=== PATIENT | female | born 1960 | race Caucasian/White ===

== ENCOUNTER 2016-06-26 07:49 | Emergency (ER) | payer MEDICARE, OTHER ==
[2016-06-26 08:03] VITALS: BP 155/91
[2016-06-26] MEDS ORDERED: ALBUTEROL SULFATE/IPRATROPIUM 3 ML NEBU IH ONE ×4 (08:04→09:06)
--- OUTSIDE RECORDS SUMMARY | 2016-06-26 08:23 | XMS REPORT | Continuity of Care Document ---
:1960 Author Organization [place] [place] [address] Care Team Providers Name Role Phone Jared Foss Primary Care Provider [phone] Source Comments This disclosure is being made pursuant to the [employer] program and maynot contain all information available regarding this patient.[facility] Active Allergies and Adverse Reactions Not on File Current Medications Be aware that medications may not be up to date as of this document. Alwaysverify current medications with the patient. Not on file Active Problems Not on file Most Recent Encounters Date Type Specialty Providers Description 06/03/2016 Data Import Social History Tobacco Use Types Packs/Day Years Used Date Never Assessed Plan of Care Health Maintenance Due Date Last Done Comments Tetanus/Pertussis (1 - Tdap) 08/06/1978 Pap Smear 08/06/1980 Colonoscopy 08/06/2009 Mammogram 08/06/2009 Well Adult Visit 08/06/2009 Influenza Immunization (#1) 2015 Results from Last 3 Months Not on file
--- OUTSIDE RECORDS SUMMARY | 2016-06-26 08:24 | XMS REPORT | Continuity of Care Document ---
:1960 Author Organization [facility] ([facility]) Address [address] [place] [address] Phone [phone] Care Team Providers Name Role Phone [phone], Need To Check Primary Care Provider Unavailable Source Comments This disclosure is being made pursuant to the Care Everywhere program, applicable federal and state laws, and may not contain all informaitonavailable regarding this patient.[facility] ([facility]) Active Allergies and Adverse Reactions Allergen Noted Date Severity Reactions Comments Gabapentin 08/28/2010 Somnolence After 2 doses slept for 24 hrs. Current Medications Prescription Sig. Disp. Refills Start Date End Date Status traMADol 50 mg tablet Take 1 Tab by 120 Tab 1 02/25/2011 Active mouth 4 times daily as needed. Do not take concomitantly with narcotics prescibed by other providers. Indications: Pain carisoprodol 350 mg Take 350 mg by Active tablet mouth 4 times daily. Indications: MUSCLE SPASM asenapine (SAPHRIS, place 1 Tab under 30 Tab 0 08/11/2012 Active [place],) 5 mg SL the tongue 2 times tablet daily. Indications: DEPRESSION TREATMENT ADJUNCT clonazePAM 0.5 mg Take 1 Tab by 30 Tab 0 08/11/2012 Active tablet mouth 2 times daily as needed. Indications: PANIC DISORDER dextroamphetamine 10 mg 1 tab TIDTake at 8 45 Tab 0 08/11/2012 Active tablet am, noon, 3 pm Indications: ATTENTION-DEFICIT HYPERACTIVITY DISORDER dextroamphetamine 15 mg Take 1 Cap by 15 Cap 0 08/11/2012 Active SR capsule mouth daily. Indications: ATTENTION-DEFICIT HYPERACTIVITY DISORDER HYDROcodone-acetaminoph Take 1 Tab by 10 Tab 0 11/17/2012 Active en 5-325 mg per tablet mouth at bedtime. Indications: PAIN oxyCODONE-acetaminophen Take 2 tablets by 60 tablet 0 01/17/2015 Active 5-325 mg per tablet mouth every 4 hours as needed for up to 10 days methocarbamol 750 mg Take 1 tablet (750 30 tablet 0 01/17/2015 Active tablet mg total) by mouth every 6 hours as needed for muscle spasms for up to 10 days Active Problems Problem Noted Date ADHD (attention deficit hyperactivity disorder) 05/16/2012 Bipolar disorder 05/16/2012 Anxiety 05/16/2012 Insomnia, unspecified 05/16/2012 Chronic low back pain 08/18/2010 Other physical therapy 08/18/2010 Pain in joint, lower leg 05/23/2006 Backache, unspecified 05/23/2006 Other screening mammogram 12/22/2005 Chronic hepatitis C without mention of hepatic coma 11/10/2005 Other and unspecified hyperlipidemia 08/20/2005 Other specified general medical examination 06/29/2005 Esophageal reflux 06/04/2005 Abnormal weight gain 11/03/2004 Abdominal pain, unspecified site 11/03/2004 Most Recent Encounters Date Type Specialty Providers Description 06/10/2016 Office Visit Ophthalmology - Babatunde Rios MD Subj: Appointment Specialty Canceled 05/28/2016 Office Visit Ophthalmology - Magdy Nixon MD Subj: Appointment Specialty Scheduled 05/27/2016 Telephone Ophthalmology - Domonique Castañeda, Chief Comp: Patient Specialty RN Concern Immunizations Name Dates Previously Given Next Due Influenza, PF 01/07/2011 Influenza, unspecified 12/22/2005 Social History Tobacco Use Types Packs/Day Years Used Date Former Smoker Cigarettes Smokeless Tobacco: Never Used Tobacco Cessation:Counseling Given: Yes Comments: Alcohol Use Drinks/Week oz/Week Comments No Last Filed Vital Signs Vital Sign Reading Time Taken Blood Pressure 120/74 11/17/2012 2:06 PM CDT Pulse 92 11/17/2012 2:06 PM CDT Temperature 36.7 C (98 F) 11/17/2012 2:06 PM CDT Respiratory Rate 20 11/17/2012 2:06 PM CDT Height 1.6 m (5' 3") 11/03/2010 11:57 AM CDT Weight 60.51 kg (133 lb 6.4 oz) 11/17/2012 2:06 PM CDT Body Mass Index 23.64 11/17/2012 2:06 PM CDT Oxygen Saturation 98% 03/17/2011 12:53 PM [employer] Plan of Care Health Maintenance Due Date Last Done Comments Hepatitis B Vaccine (1 of 3 - 1960 Primary Series) Tdap Vaccine 08/06/1970 MMR Vaccine 08/06/1977 Td Vaccine 08/06/1977 Pneumococcal Vaccine (1 of 1 08/06/1978 - PPSV23) Cervical Cancer Screening 08/06/1989 Mammogram 1999 Sigmoidoscopy Colon Cancer 08/06/2009 Screening FOBT Colon Cancer Screening 10/23/2011 10/22/2010 Lipid Disorder Screening 06/26/2015 06/25/2010, Additional history exists 10/18/2006, 12/22/2005 Colonoscopy 10/19/2015 10/18/2005 HCV Screening Completed 07/08/2005 Influenza Vaccine: Seasonal Completed 01/07/2011, 12/22/2005 Results from Last 3 Months Not on file
[2016-06-26] MEDS ORDERED: ACETAMINOPHEN 500 MG TABLET PO ONE (09:04)
[2016-06-26] MEDS ORDERED: LEVOFLOXACIN/D5W 750 MG/150 ML BAG IV ONE (09:05)
--- NOTE | 2016-06-26 09:08 | ERNOTE ---
Date of Service: 06/26/16 Time Seen by Provider: 06/26/16 07:59 Stated Complaint: URI Presenting Symptoms:: cough, other - SOB Source: patient Exam Limitations: no limitations Immunizations: IMMUNIZATION HX Immunizations Up to Date Yes History of Influenza Vaccine Yes Hx Pneumococcal Vaccination No Allergies/Adverse Reactions: Allergies No Known Allergies Allergy (Verified 01/16/16 11:50) Home Medications: HOME MEDICATIONS Zolpidem Tartrate [Ambien] 5 mg PO HS PRN 01/16/16 [Last Taken Unknown] ALPRAZolam [Xanax] 0.5 mg PO BID PRN 03/06/16 [Last Taken Unknown] Dextroamphetamine/Amphetamine [Adderall 20 mg Tablet] 20 mg PO BID 03/06/16 [ Last Taken Unknown] Albuterol Sulfate [Albuterol Sulfate 0.63 MG/3ML] 06/26/16 [Last Taken Unknown] Albuterol Sulfate [Albuterol Sulfate 2.5 MG/3 ML] 2.5 mg IH Q4H #60 vial.neb [Last Taken Unknown] Chantix 06/26/16 [Last Taken Unknown] Levofloxacin/D5w [Levaquin] 750 mg IV DAILY #7 piggyback 06/26/16 [Last Taken Unknown] predniSONE [Deltasone] 20 mg PO DAILY #5 tablet 06/26/16 [Last Taken Unknown] - History of Present Ilness Narrative: Patient comes due to SOB, coughing, and production of sputum. Timing: constant Severity: moderate Frequency/Possible Cause: Reports: frequent episodes Modifying Factors - Improves: Reports: nothing Modifying Factors - Worsens: Reports: coughing Associated Symptoms: Reports: cough, shortness of breath Prior Treatment: Denies: recently seen Review of Systems - Review of Systems Constitutional: Present: chills. Absent: fever EYE: Present: no symptoms reported ENT: Present: no symptoms reported Respiratory: Present: shortness of breath, cough, wheezing Cardiology: Present: no symptoms reported Gastrointestinal/Abdominal: Present: no symptoms reported Genitourinary: Present: no symptoms reported Musculoskeletal: Present: no symptoms reported Skin: Present: no symptoms reported Neurological: Present: no symptoms reported Endocrine: Present: no symptoms reported Hematologic/Lymphatic: Present: no symptoms reported Psych: Present: no symptoms reported All Other Systems: All systems neg except as marked - Patient's Past Medical History Patient History - Medical: ADHD, Anxiety, Chronic Pain, Depression, GERD, UTI'S Patient History - Cardiac/Respiratory: Bronchitis Patient History - Cancer: No Hx of Cancer Patient History - Surgical Procedures: Appendectomy, Back Surgery, Colonoscopy, D & C, EGD, Hysterectomy Patient History - Other: None - Family History Mother Family History - Medical: Renal Failure Family History - Cardiac/Respiratory: Hypertension - Social History Living Situations: home Abuse History: No History of abuse Psych History: Hx of Depression Smoking Status: Current some day smoker Smoking Stop Date: 03/22/16 Alcohol Use: none Drug Use: none - Immunizations Immunizations Up to Date: Yes Hx Pneumococcal Vaccination: No History of Influenza Vaccine: Yes Physical Exam - Physical Exam General Appearance: Present: wd/wn, alert, no apparent distress Eye Exam: Normal inspection: bilateral Ears, Nose, Throat: Present: normal ENT inspection Neck: Present: normal inspection Respiratory: Present: expiration (prolonged), rhonchi - L lung area, wheezing - Bilatere more in the L lung area Cardiovascular/Chest: Present: regular rate, rhythm, normal peripheral pulses. Absent: JVD Gastrointestinal/Abdominal: Present: normal bowel sounds, nontender, nondistended, soft, no organomegaly Rectal Exam: Present: nontender, normal rectal tone Back Exam: Present: normal inspection, normal range of motion, no CVA tenderness , no vertebral tenderness Extremity Exam: Present: normal inspection, non-tender, normal range of motion, no edema Neurological Exam: Present: alert, oriented, normal mood/affect, no motor/ sensory deficits Skin Exam: Present: normal color, warm/dry Lymphatic Exam: Present: no adenopathy ED Progress - Date and Time Seen: Date and Time: 06/26/16 09:14 Patient has refused all labs and further treatments recommended to her at ER. Patient wants to go home due to the need to assume care of a minor. Patient has been explained risks and benefits. - Vital Signs Patient's Vital Signs:: I have reviewed the patient's vital signs. Vital Signs: Vital Signs 06/26/16 06/26/16 06/26/16 07:59 08:11 08:12 Temperature 37 C Pulse Rate 108 H 108 H 108 H Respiratory 12 Rate Blood Pressure 155/91 O2 Sat by Pulse 93 Oximetry - X-Ray X-Ray #1 X-Ray: chest Interpretation: Interp. by me X-ray Comments: Lingular changes were noticed. - Progress/Reassessment Chief Complaint: Cough Progress:: Improved Plan - Plan Plan: Patient completed AMA and will follow up with her PCP. Departure - Departure Clinical Impression: Bronchitis COPD (chronic obstructive pulmonary disease) Qualifiers: COPD type: unspecified COPD Qualified Code(s): J44.9 - Chronic obstructive pulmonary disease, unspecified Disposition: Home self-care Condition: Stable Instructions: Chronic Obstructive Pulmonary Disease Exacerbation, [id number] , Community-Acquired Pneumonia, Adult, [id number] Referrals: Mike Lopez MD [Primary Care Provider] - Prescriptions: Albuterol Sulfate [Albuterol Sulfate 2.5 MG/3 ML] 2.5 mg IH Q4H #60 vial.neb Levofloxacin/D5w [Levaquin] 750 mg IV DAILY #7 piggyback predniSONE [Deltasone] 20 mg PO DAILY #5 tablet
[2016-06-26] MEDS ORDERED: LEVOFLOXACIN 500 MG TABLET PO ONE (09:20)
== END 2016-06-26 09:40 | disposition home or self-care (01) ==
LOC: ER 07:49
DX: J44.9 Chronic obstructive pulmonary disease, unspecified (principal); J40 Bronchitis, not specified as acute or chronic; F17.210 Nicotine dependence, cigarettes, uncomplicated; Z53.29 Procedure and treatment not carried out because of patient's decision for other reasons

== ENCOUNTER 2017-02-04 12:23 | Emergency (ER) | payer MEDICARE, MEDICAID ==
[2017-02-04 12:30] VITALS: BP 135/94
[2017-02-04] MEDS ORDERED: ALBUTEROL SULFATE 2.5 MG/0.5 ML VIAL.NEB IH ONE ×2 (12:39→13:01)
[2017-02-04] MEDS ORDERED: METHYLPREDNISOLONE SOD SUCC/PF 40 MG/ML VIAL IM ONE (12:40)
[2017-02-04] MEDS ORDERED: METHYLPREDNISOLONE SOD SUCC/PF 125 MG/2 ML VIAL ONE (13:01)
--- NOTE | 2017-02-04 13:01 | ERNOTE ---
Date of Service: 02/04/17 Time Seen by Provider: 02/04/17 12:26 Stated Complaint: BRONCHITIS Presenting Symptoms:: cough Source: patient Exam Limitations: no limitations Immunizations: IMMUNIZATION HX Immunizations Up to Date Yes History of Influenza Vaccine Yes Hx Pneumococcal Vaccination No Allergies/Adverse Reactions: Allergies No Known Allergies Allergy (Verified 02/04/17 12:31) Home Medications: HOME MEDICATIONS Zolpidem Tartrate [Ambien] 5 mg PO HS PRN 01/16/16 [Last Taken Unknown] ALPRAZolam [Xanax] 0.5 mg PO BID PRN 03/06/16 [Last Taken Unknown] Dextroamphetamine/Amphetamine [Adderall 20 mg Tablet] 20 mg PO BID 03/06/16 [ Last Taken Unknown] Albuterol Sulfate [Albuterol Sulfate 2.5 MG/3 ML] 2.5 mg IH Q4H #60 vial.neb [Last Taken Unknown] Albuterol Sulfate [Ventolin Hfa] 2 puff IH Q4H PRN #1 inhaler 02/04/17 [Last Taken Unknown] Doxycycline Monohydrate 100 mg PO BID #20 tablet 02/04/17 [Last Taken Unknown] predniSONE [Prednisone] 3 tab PO DAILY #9 tab 02/04/17 [Last Taken Unknown] - History of Present Ilness Narrative: Pt. comes in with c/o cough and SOB for a week. Pt. states that she has been using her combivent inhaler approximately once an hour for the past three days and it improves her symptoms but they improve. Pt. denies any fevers, NVD, rhinorrhea, sore throat, ear pain, but does state that she has yellow sputum production. Pt. denies any other prehospital treatment, alleviating factors, or aggravating factors. Review of Systems - Review of Systems Constitutional: Present: no symptoms reported. Absent: recent illness, fever, chills, weakness, fatigue, malaise EYE: Present: no symptoms reported. Absent: eye pain, eye discharge, double vision ENT: Present: no symptoms reported. Absent: nose pain, nose congestion, nasal drainage, sore throat Respiratory: Present: no symptoms reported. Absent: shortness of breath, cough , wheezing Cardiology: Present: no symptoms reported. Absent: chest pain, palpitations, edema Gastrointestinal/Abdominal: Present: no symptoms reported. Absent: nausea, vomiting, diarrhea, abdominal pain Genitourinary: Present: no symptoms reported Musculoskeletal: Present: no symptoms reported. Absent: back pain, joint pain Skin: Present: no symptoms reported. Absent: rash, change in color Neurological: Present: no symptoms reported. Absent: headache, dizziness/light- headedness, numbness, tingling Endocrine: Present: no symptoms reported Hematologic/Lymphatic: Present: no symptoms reported. Absent: easy bruising, easy bleeding All Other Systems: All systems neg except as marked - Patient's Past Medical History Patient History - Medical: ADHD, Anxiety, Chronic Pain, Depression, GERD, UTI'S Patient History - Cardiac/Respiratory: Bronchitis Patient History - Cancer: No Hx of Cancer Patient History - Surgical Procedures: Appendectomy, Back Surgery, Colonoscopy, D & C, EGD, Hysterectomy Patient History - Other: None - Family History Mother Family History - Medical: Renal Failure Family History - Cardiac/Respiratory: Hypertension - Social History Abuse History: No History of abuse Psych History: Hx of Depression Smoking Status: Current every day smoker Have you smoked in the past 12 months: Yes - Immunizations Immunizations Up to Date: Yes Hx Pneumococcal Vaccination: No History of Influenza Vaccine: Yes Physical Exam - Physical Exam General Appearance: Present: wd/wn, alert, mild distress Head Exam: Present: normal inspection, no evidence of injury Eye Exam: Normal inspection: bilateral, PERRL: bilateral, EOMI: bilateral Ears, Nose, Throat: Present: nasal congestion, normal pharynx, other - clear rhinorrhea. Absent: abnormal TM (R), abnormal TM (L), sinus pain/drainage Neck: Present: normal inspection, nontender, supple, full range of motion. Absent: lymphadenopathy (R), lymphadenopathy (L) Respiratory: Present: chest nontender, decreased breath sounds - mid to base, rhonchi - BUL, wheezing - throughout Cardiovascular/Chest: Present: no murmur, normal peripheral pulses, tachycardia Gastrointestinal/Abdominal: Present: normal bowel sounds, nontender, nondistended, soft, no organomegaly Back Exam: Present: normal inspection, normal range of motion, no CVA tenderness , no vertebral tenderness Extremity Exam: Present: normal inspection, non-tender, normal range of motion, no edema Neurological Exam: Present: alert, oriented, normal mood/affect, no motor/ sensory deficits Skin Exam: Present: warm/dry, pallor ED Progress - Results and Orders Patient's Lab Results:: I have reviewed the patient's lab results. - Vital Signs Patient's Vital Signs:: I have reviewed the patient's vital signs. Vital Signs: Vital Signs 02/04/17 12:27 Temperature 36.4 C L Pulse Rate 100 Respiratory 16 Rate Blood Pressure 135/94 O2 Sat by Pulse 93 Oximetry - X-Ray X-Ray #1 X-Ray: chest Interpretation: Reviewed by me X-ray Comments: No consolidation or atelactasis - Progress/Reassessment Chief Complaint: Cough Progress:: Unchanged Departure Clinical Impression: Bronchitis COPD (chronic obstructive pulmonary disease) Qualifiers: COPD type: unspecified COPD Qualified Code(s): J44.9 - Chronic obstructive pulmonary disease, unspecified - Departure Disposition: Home self-care Condition: Good Instructions: Chronic Obstructive Pulmonary Disease Exacerbation, [id number] , Acute Bronchitis, [id number] Additional Instructions: Please follow up with primary provider in 2-3 days. Referrals: Mike Lopez MD [Primary Care Provider] - Prescriptions: Albuterol Sulfate [Ventolin Hfa] 2 puff IH Q4H PRN #1 inhaler PRN Reason: Shortness Of Breath Doxycycline Monohydrate 100 mg PO BID #20 tablet predniSONE [Prednisone] 3 tab PO DAILY #9 tab
[2017-02-04 13:07] LABS: Hematocrit 43.1 % (37.0-47.0); Hemoglobin 14.4 gm/dL (12.5-16.0); Mean Cell Volume 90.2 fl (78-100); Mean Corpuscular Hemoglobin 30.1 pg (27-31); Mean Corpuscular Hgb Conc 33.4 g/dl (32-36); Mean Platelet Volume 9.1 fl (6.0-9.5); Neutrophil # 6.6 K/mm3 (1.3-6.0); Neutrophil % 75.1 % (42-75.0); Platelet Count 336 K/mm3 (150-450); Red Blood Count 4.78 M/mm3 (4.2-5.4); Red Cell Distribution Width 14.1 % (11.5-14.0); White Blood Count 8.8 K/mm3 (4.0-10.5)
[2017-02-04 13:27] LABS: Albumin * 3.8 gm/dl (3.4-5.0); Anion Gap 14.9 mmol/L (6.8-13.8); BUN/Creatinine Ratio 14.2 (9.0-21.6); Bilirubin, Total 0.3 mg/dL (0.0-1.1); Ca. Corrected For Albumin 9.2 mg/dL (8.4-10.2); Calcium * 9.4 mg/dL (7.9-10.9); Carbon Dioxide 26.7 mmol/L (24-32.6); Potassium 4.6 mmol/L (3.4-4.6); Total Protein 8.1 gm/dL (6.2-8.2)
== END 2017-02-04 14:00 | disposition home or self-care (01) ==
LOC: ER 12:23
DX: J40 Bronchitis, not specified as acute or chronic (principal); J44.9 Chronic obstructive pulmonary disease, unspecified; F17.200 Nicotine dependence, unspecified, uncomplicated
CPT/HCPCS: 36415; 71020; 71046; 80053; 85025; 94640; 96372; 99284

== ENCOUNTER 2017-04-09 13:38 | Observation (INO) | payer MEDICARE, MEDICAID ==
[2017-04-09] MEDS ORDERED: NORMAL SALINE 1,000 ML IV ONE (13:53)
[2017-04-09] MEDS ORDERED: DILTIAZEM HCL 5 MG/ML VIAL IV ONE ×4 (13:58→14:31)
[2017-04-09 14:10] LABS: Hematocrit 38.1 % (37.0-47.0); Hemoglobin 12.5 gm/dL (12.5-16.0); Mean Cell Volume 90.9 fl (78-100); Mean Corpuscular Hemoglobin 29.8 pg (27-31); Mean Corpuscular Hgb Conc 32.8 g/dl (32-36); Mean Platelet Volume 9.1 fl (6.0-9.5); Neutrophil # 7.8 K/mm3 (1.3-6.0); Neutrophil % 81.5 % (42-75.0); Platelet Count 289 K/mm3 (150-450); Red Blood Count 4.19 M/mm3 (4.2-5.4); Red Cell Distribution Width 14.5 % (11.5-14.0); White Blood Count 9.6 K/mm3 (4.0-10.5)
[2017-04-09 14:26] LABS: ALT 24 U/L (19-67); AST 17 U/L (0-48); Albumin * 3.4 gm/dl (3.4-5.0); Alkaline Phosphatase * 144 U/L (50-170); Anion Gap 10.2 mmol/L (6.8-13.8); BUN/Creatinine Ratio 21.2 (9.0-21.6); Bilirubin, Total 0.7 mg/dL (0.0-1.1); Blood Urea Nitrogen 29 mg/dL (3-23); Ca. Corrected For Albumin 9.3 mg/dL (8.4-10.2); Calcium * 9.1 mg/dL (7.9-10.9); Carbon Dioxide 27.1 mmol/L (24-32.6); Chloride 103 mmol/L (97-106); Glucose * 120 mg/dL (70-110); Potassium 4.3 mmol/L (3.4-4.6); Sodium 136 mmol/L (132-142); Total Protein 7.4 gm/dL (6.2-8.2); Troponin I Less than 0.017 ng/ml (0.00-0.10)
[2017-04-09] MEDS: DILTIAZEM HCL 125 MG in DEXTROSE 5 % IN WATER 100 ML IV PRN ×4 (14:57→23:38)
[2017-04-09 15:11] LABS: Urine Appearance Cloudy; Urine Bilirubin Negative (NEGATIVE); Urine Blood Negative /ul (NEGATIVE); Urine Color Dark Yellow; Urine Ketone Negative (NEGATIVE); Urine Specific Gravity 1.025 SP.GR. (1.005-1.010)
[2017-04-09] MEDS ORDERED: ALPRAZolam 0.25 MG TABLET PO ONE (15:11)
[2017-04-09 15:12] LABS: Urine Bacteria 1+; Urine Nitrite Negative (NEGATIVE); Urine Protein 15 mg/dL (NEGATIVE); Urine RBC None Seen /hpf (0-5); Urine Urobilinogen Normal (NORMAL)
[2017-04-09] MEDS ORDERED: ALPRAZolam 0.25 MG TABLET ONE (15:12)
[2017-04-09 15:34] LABS: Cocaine Ur Negative (NEGATIVE); Urine Barbiturate Negative (NEGATIVE); Urine Benzodiazepines Positive (NEGATIVE); Urine Opiates Negative (NEGATIVE); Urine PCP Negative (NEGATIVE); Urine THC Negative (NEGATIVE)
--- NOTE | 2017-04-09 15:45 | ERNOTE ---
ER Female HPI Date of Service: 04/09/17 Stated Complaint: UTI Time Seen by Provider: 04/09/17 13:46 Source: patient Exam Limitations: no limitations Immunizations: IMMUNIZATION HX Immunizations Up to Date Yes History of Influenza Vaccine Yes Hx Pneumococcal Vaccination No Allergies/Adverse Reactions: Allergies No Known Allergies Allergy (Verified 04/09/17 13:46) Home Medications: HOME MEDICATIONS Zolpidem Tartrate [Ambien] 5 mg PO HS PRN 01/16/16 [Last Taken Unknown] ALPRAZolam [Xanax] 0.5 mg PO BID PRN 03/06/16 [Last Taken Unknown] Dextroamphetamine/Amphetamine [Adderall 20 mg Tablet] 20 mg PO BID 03/06/16 [ Last Taken Unknown] Albuterol Sulfate [Albuterol Sulfate 2.5 MG/3 ML] 2.5 mg IH Q4H #60 vial.neb [Last Taken Unknown] Albuterol Sulfate [Ventolin Hfa] 2 puff IH Q4H PRN #1 inhaler 02/04/17 [Last Taken Unknown] - History of Present Illness Narrative: Patient presents to the ED with concern of UTI. She relates 4 days of cloudy urine and flank pain that she has had before with UTI. No clear fever but she has also been having a cough. She also relates that she has been SOB with exertion for 4 days. Has not seen anyone else for this. Occasional abdominal cramps. No calf pain or leg swelling. No chest pain. Timing: Present: getting worse Quality: Present: moderate Onset Location: Present: other - low back Radiation: Present: none Activities at Onset: Present: none Modifying Factors - (Improves): Present: other - nothing Associated Symptoms: Present: other - nothing Prior Treatment: Absent: recently seen Review of Systems - Review of Systems Constitutional: Absent: fever EYE: Present: no symptoms reported ENT: Absent: sore throat Respiratory: Present: See HPI Cardiology: Absent: chest pain Gastrointestinal/Abdominal: Absent: vomiting Genitourinary: Present: See HPI Musculoskeletal: Present: no symptoms reported Skin: Absent: rash Neurological: Absent: weakness All Other Systems: All systems neg except as marked - Patient's Past Medical History Patient History - Medical: ADHD, Anxiety, Chronic Pain, Depression, GERD, UTI'S Patient History - Cardiac/Respiratory: Bronchitis Patient History - Cancer: No Hx of Cancer Patient History - Surgical Procedures: Appendectomy, Back Surgery, Colonoscopy, D & C, EGD, Hysterectomy Patient History - Other: None - Family History Mother Family History - Medical: Renal Failure Family History - Cardiac/Respiratory: Hypertension - Social History Living Situations: home Abuse History: No History of abuse Psych History: Hx of Depression Alcohol Use: none Drug Use: none - Immunizations Immunizations Up to Date: Yes Hx Pneumococcal Vaccination: No History of Influenza Vaccine: Yes Physical Exam - Physical Exam General Appearance: Present: alert, no apparent distress Head Exam: Present: normal inspection, no evidence of injury Eye Exam: Normal inspection: bilateral, PERRL: bilateral Ears, Nose, Throat: Present: normal ENT inspection Neck: Present: normal inspection Respiratory: Present: no respiratory distress, normal breath sounds, no accessory muscle use, lungs clear Cardiovascular/Chest: Present: normal peripheral pulses, tachycardia Gastrointestinal/Abdominal: Present: normal bowel sounds, nontender, nondistended, soft Back Exam: Present: CVA tenderness (R) Extremity Exam: Present: normal inspection, no edema Neurological Exam: Present: alert, no motor/sensory deficits, 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 Absent: motor weakness Skin Exam: Present: normal color, warm/dry ED Progress - Results and Orders Patient's Lab Results:: I have reviewed the patient's lab results. - Vital Signs Patient's Vital Signs:: I have reviewed the patient's vital signs. Vital Signs: Vital Signs 04/09/17 04/09/17 04/09/17 13:42 14:00 14:18 Temperature 36.7 C 36.7 C Pulse Rate 150 H 150 H 153 H Respiratory 18 18 Rate Blood Pressure 93/65 93/65 102/67 O2 Sat by Pulse 92 92 Oximetry 04/09/17 04/09/17 04/09/17 14:34 14:56 14:57 Temperature Pulse Rate 126 H 148 H 148 H Respiratory 17 12 Rate Blood Pressure 89/60 96/70 96/70 O2 Sat by Pulse 94 95 Oximetry - EKG EKG: atrial fibrillation EKG read: Interp. by me EKG Comments: Atrial flutter with rate 150. Non-specific ST/T wave changes, no STEMI - X-Ray X-Ray #1 X-Ray: chest Interpretation: Interp. by me X-ray Comments: Not being read in real time by radioogy. NO PTX or pneumonia. - Progress/Reassessment Chief Complaint: Genitourinary Problem Progress Note-Subjective: 04/09/17 15:42 IV Cardizem bolus given X 2 with HR into 110 range, A fib/flutter by monitor. It took quite a while for the Cardizem drip to come from pharmacy so her HR had gone back up to the 140s but this was at 15mg/h so should work to bring her HR down as the cardizem worked earlier. No indication for emergent cardioversion. IV ABx given for UTI. D/W Dr Mckeon who will admit the patient. Patient agreeable to admission and wishes to stay here in [facility]. Departure Clinical Impression: Atrial fibrillation with RVR, UTI (urinary tract infection) - Departure Disposition: [facility] Condition: Fair
--- NOTE | 2017-04-09 15:51 | HP ---
Chief Complaint - Chief Complaint Date of Service: 04/09/17 Time of Service: 15:48 History of Present Illness: Lorena Stearns is a 56-year-old female who presents with signs and symptoms of a urinary tract. During the course of her exam she was found to have tachycardia rate of 1 50/m. EKG demonstrates this is atrial fib flutter with RVR. Initial attempt to convert with Cardizem slowed the rate to 1:15 but didn't last. She was then placed on a Cardizem drip and will be admitted to the special care unit for monitoring while trying to convert her. Her urinalysis demonstrates a urinary tract infection. Her urine drug screen reflex presence of amphetamine and benzodiazepine. To her knowledge she's never had any cardiac dysrhythmias. - Patient's Past Medical History Patient History - Medical: ADHD, Anxiety, Chronic Pain, Depression, GERD, UTI'S Patient History - Cardiac/Respiratory: Bronchitis Patient History - Cancer: No Hx of Cancer Patient History - Surgical Procedures: Appendectomy, Back Surgery, Colonoscopy, D & C, EGD, Hysterectomy Patient History - Other: None - Family History Mother Family History - Medical: Diabetes Type 2 Insulin Dependent, Renal Failure Family History - Cardiac/Respiratory: Atrial Fibrillation, Hypertension Father Family History - Medical: Family History - Cancer: Bladder, Lung - Social History Living Situations: home Abuse History: No History of abuse Psych History: Hx of Anxiety, Hx of Depression Does anyone smoke in the home?: Yes Smoking Status: Current every day smoker Cigarettes Packs Per Day: 0.5 Have you smoked in the past 12 months: Yes Do you dip or chew tobacco: No Patient requests Smoking Cessation Consult: No Initiate information on Smoking Cessation: Yes Alcohol Use: none Drug Use: none - Immunizations Immunizations Up to Date: Yes Hx Pneumococcal Vaccination: No History of Influenza Vaccine: Yes Review Of Systems (GEN) - Review of Systems Generalized/Overall Review: Present: Weakness EENTM: Present: No Symptoms Reported Respiratory: Present: Cough, Shortness of Breath Cardiac: Present: Palpitations Abdominal: Present: Abdominal Pain - In the left flank area Genitourinary: Present: Burning, Urgency, Frequency, Nocturia, Dysuria Musculoskeletal: Present: Back Pain - In the left low back. Neurological: Present: No Symptoms Reported, Anxiety Skin: Present: No Symptoms Reported Endocrine: Present: No Symptoms Reported Immunizations: IMMUNIZATION HX Immunizations Up to Date Yes History of Influenza Vaccine Yes Hx Pneumococcal Vaccination No Allergies/Adverse Reactions: Allergies Allergy/AdvReac Type Severity Reaction Status Date / Time No Known Allergies Allergy Verified 04/09/17 13:46 Home Medications: HOME MEDICATIONS Zolpidem Tartrate [Ambien] 5 mg PO HS PRN 01/16/16 [Last Taken Unknown] ALPRAZolam [Xanax] 0.5 mg PO BID PRN 03/06/16 [Last Taken Unknown] Dextroamphetamine/Amphetamine [Adderall 20 mg Tablet] 20 mg PO BID 03/06/16 [ Last Taken Unknown] Albuterol Sulfate [Albuterol Sulfate 2.5 MG/3 ML] 2.5 mg IH Q4H #60 vial.neb [Last Taken Unknown] Albuterol Sulfate [Ventolin Hfa] 2 puff IH Q4H PRN #1 inhaler 02/04/17 [Last Taken Unknown] Exam - Exam Vital Signs: Vital Signs - Last Taken Temp 36.7 C 04/09/17 14:00 Pulse 148 H 04/09/17 14:57 Resp 12 04/09/17 14:56 BP 96/70 04/09/17 14:57 Pulse Ox 95 04/09/17 14:56 Constitutional: Present: Alert, Oriented x3, Cooperative, Well developed, Well nourished, Mild distress, Middle aged, Looks Older than stated age ENT Exam: Present: normal ENT inspection, hearing grossly normal, pharynx normal , other - Edentulous Eye Exam: bilateral eye: normal inspection, PERRL, EOMI Neck: Present: non-tender, full range of motion, supple, normal inspection Back Exam: Present: normal inspection, CVA tenderness (L) Breasts: Present: Exam deferred Respiratory: Present: chest non-tender, lungs clear, normal breath sounds, no respiratory distress, no accessory muscle use Cardiovascular/Chest: Present: no chest tenderness, no edema, tachycardia. Absent: diastolic murmur, systolic murmur, gallop/S3, gallop/S4, chest tender Peripheral Pulses: carotid (R): 2+, carotid (L): 2+ Abdomen: Present: soft, nontender, nondistended, no rebound tenderness, no hepatospenomegaly /Rectal: Present: Exam deferred Extremity: Present: normal range of motion, non-tender, normal inspection, no pedal edema, no calf tenderness Skin Exam: Present: normal color, warm/dry, no cyanosis, cool/dry Lymphatic: Present: no adenopathy Neurologic: Present: log grader II-XII nml as tested, normal cerebellar test, no motor/ sensory deficits, normal mood/affect, oriented x 3 Appearance: Present: appropriate appearance, neat, no memory impairment Eye contact: Present: cooperative, good eye contact, normal speech Thoughts: Present: normal thought pattern, no apparent hallucination Diagnostic Studies: Laboratory Results WBC 9.6 K/mm3 (4.0-10.5) 04/09/17 14:03 RBC 4.19 M/mm3 (4.2-5.4) L 04/09/17 14:03 Hgb 12.5 gm/dL (12.5-16.0) 04/09/17 14:03 Hct 38.1 % (37.0-47.0) 04/09/17 14:03 MCV 90.9 fl (78-100) 04/09/17 14:03 MCH 29.8 pg (27-31) 04/09/17 14:03 MCHC 32.8 g/dl (32-36) 04/09/17 14:03 RDW 14.5 % (11.5-14.0) H 04/09/17 14:03 Plt Count 289 K/mm3 (150-450) 04/09/17 14:03 MPV 9.1 fl (6.0-9.5) 04/09/17 14:03 Immature Gran % (Auto) 0.40 % (0.001-0.429) 04/09/17 14:03 Immature Gran # (Auto) 0.04 K/mm3 (0.000-0.0310) H 04/09/17 14:03 Neutrophils % 81.5 % (42-75.0) H 04/09/17 14:03 Lymphocytes % 12.9 % (20-51) L 04/09/17 14:03 Monocytes % 4.2 % (0.0-9) 04/09/17 14:03 Eosinophils % 0.6 % (0.0-3.0) 04/09/17 14:03 Basophils % 0.4 % (0.0-1.0) 04/09/17 14:03 Nucleated RBC % 0.0 k/mm3 (0-1) 04/09/17 14:03 Neutrophils # 7.8 K/mm3 (1.3-6.0) H 04/09/17 14:03 Lymphocytes # 1.2 k/mm3 (1.5-3.5) L 04/09/17 14:03 Monocytes # 0.4 k/mm3 (0.0-1.0) 04/09/17 14:03 Eosinophils # 0.1 k/mm3 (0.0-0.7) 04/09/17 14:03 Absolute Basophils 0.0 k/mm3 (0.0-0.1) 04/09/17 14:03 Sodium 136 mmol/L (132-142) 04/09/17 14:03 Plasma Sodium 136 mmol/L (130-142) 04/09/17 14:03 Potassium 4.3 mmol/L (3.4-4.6) 04/09/17 14:03 Chloride 103 mmol/L (97-106) 04/09/17 14:03 Carbon Dioxide 27.1 mmol/L (24-32.6) 04/09/17 14:03 Anion Gap 10.2 mmol/L (6.8-13.8) 04/09/17 14:03 BUN 29 mg/dL (3-23) H D 04/09/17 14:03 Creatinine 1.37 mg/dL (0.4-1.4) 04/09/17 14:03 Est GFR (Non-Af Amer) 42 mL/min (60-130) L 04/09/17 14:03 BUN/Creatinine Ratio 21.2 (9.0-21.6) 04/09/17 14:03 Random Glucose 120 mg/dL (70-110) H 04/09/17 14:03 Lactic Acid, Venous 0.8 mmol/L (0.4-1.9) 04/09/17 14:03 Calcium 9.1 mg/dL (7.9-10.9) 04/09/17 14:03 Calcium Adj for Albumin 9.3 mg/dL (8.4-10.2) 04/09/17 14:03 Total Bilirubin 0.7 mg/dL (0.0-1.1) 04/09/17 14:03 AST 17 U/L (0-48) 04/09/17 14:03 ALT 24 U/L (19-67) 04/09/17 14:03 Alkaline Phosphatase 144 U/L (50-170) 04/09/17 14:03 Troponin I Less than 0.017 ng/ml (0.00-0.10) 04/09/17 14:03 Total Protein 7.4 gm/dL (6.2-8.2) 04/09/17 14:03 Albumin 3.4 gm/dl (3.4-5.0) 04/09/17 14:03 TSH 1.618 uIU/mL (0.358-3.74) 04/09/17 14:03 Urine Color Dark yellow 04/09/17 14:52 Urine Appearance Cloudy 04/09/17 14:52 Urine pH 6.0 pH (5.0-7.0) 04/09/17 14:52 Ur Specific A[place]da 1.025 SP.GR. (1.005-1.010) 04/09/17 14:52 Urine Protein 15 mg/dL (NEGATIVE) H 04/09/17 14:52 Urine Glucose (UA) Negative mg/dL (NEGATIVE) 04/09/17 14:52 Urine Ketones Negative mg/dL (NEGATIVE) 04/09/17 14:52 Urine Blood Negative /ul (NEGATIVE) 04/09/17 14:52 Urine Nitrate Negative (NEGATIVE) 04/09/17 14:52 Urine Bilirubin Negative mg/dl (NEGATIVE) 04/09/17 14:52 Prot Sulfosalicylic Acd 1+ mg/dL (0) 04/09/17 14:52 Urine Urobilinogen Normal EU/dl (NORMAL) 04/09/17 14:52 Ur Leukocyte Esterase 100 /ul (NEGATIVE) H 04/09/17 14:52 Urine RBC None seen /hpf (0-5) 04/09/17 14:52 Urine WBC 10-25 /hpf (0-5) H 04/09/17 14:52 Ur Epithelial Cells 0-5 /hpf (0-5) 04/09/17 14:52 Urine Bacteria 1+ (NONE) H 04/09/17 14:52 Urine Culture Comments Culture to follow 04/09/17 14:52 Urine Opiates Screen Negative (NEGATIVE) 04/09/17 14:52 Barbiturate Screen Negative (NEGATIVE) 04/09/17 14:52 Ur Phencyclidine Scrn Negative (NEGATIVE) 04/09/17 14:52 Urine Amphetamine Positive (NEGATIVE) H 04/09/17 14:52 U Benzodiazepines Scrn Positive (NEGATIVE) H 04/09/17 14:52 Urine Cocaine Screen Negative (NEGATIVE) 04/09/17 14:52 Urine Marijuana (THC) Negative (NEGATIVE) 04/09/17 14:52 Influenza Type A Ag Negative (NEGATIVE) 04/09/17 14:25 Influenza Type B Ag Negative (NEGATIVE) 04/09/17 14:25 Assessment/Plan - Narrative Narrative: Admit to special care unit. Since Cardizem push and drip has failed to convert her I will try 5 mg of metoprolol IV push. If that fails then I will consider amiodarone. She will be continuously monitored. I will also allow her alprazolam every 6 hours when necessary anxiety. Review of the 12-lead EKG confirms that this is atrial flutter without atrial fibrillation. There is no ischemic changes present. - Assessment/Plan (1) Atrial flutter with rapid ventricular response Problem: Acute (2) Acute pyelonephritis Problem: Acute (3) Anxiety Problem: Chronic
[2017-04-09] MEDS ORDERED: METOPROLOL TARTRATE 1 MG/ML AMPUL IV ONE ×4 (16:16→18:00)
[2017-04-09] MEDS ORDERED: DEXTROSE 5% IV STA ×2 (16:43)
[2017-04-09] MEDS ORDERED: WATER IV STA ×2 (16:43)
[2017-04-09] MEDS ORDERED: AMIODARONE HCL IV STA ×2 (16:43)
[2017-04-09] MEDS ORDERED: LORazepam 2 MG/ML DISP.SYRIN IM ONE (16:57)
[2017-04-09] MEDS ORDERED: CIPROFLOXACIN IN 5 % DEXTROSE 400 MG/200 ML BAG IV SCH (17:00)
[2017-04-09] MEDS ORDERED: ALBUTEROL SULFATE 200 PUFF INHALER IH PRN (17:04)
[2017-04-09] MEDS ORDERED: ACETAMINOPHEN 500 MG TABLET PO PRN (17:47)
[2017-04-09] MEDS ORDERED: LORazepam 2 MG/ML DISP.SYRIN ONE (18:32)
[2017-04-09] MEDS: LORazepam 1 MG TABLET PO SCH (19:08)
[2017-04-09] MEDS: traMADol HCL 50 MG TABLET PO SCH ×2 (19:12→23:40)
[2017-04-09] MEDS: CIPROFLOXACIN IN 5 % DEXTROSE 400 MG/200 ML BAG IV SCH (19:26)
[2017-04-09] MEDS ORDERED: ZOLPIDEM TARTRATE 10 MG TABLET PO SCH (21:00)
[2017-04-10] MEDS ORDERED: ZOLPIDEM TARTRATE 10 MG TABLET PO PRN (00:07)
[2017-04-10] MEDS: CARISOPRODOL 350 MG TABLET PO PRN ×2 (00:31→08:01)
[2017-04-10] MEDS: LORazepam 1 MG TABLET PO SCH ×2 (01:01→09:59)
[2017-04-10] MEDS ORDERED: DIGOXIN 0.25 MG TABLET PO ONE (02:41)
[2017-04-10] MEDS ORDERED: DIGOXIN 0.125 MG TABLET ONE (02:54)
[2017-04-10] MEDS: traMADol HCL 50 MG TABLET PO SCH ×2 (05:23→11:47)
[2017-04-10 05:29] LABS: Hematocrit 35.8 % (37.0-47.0); Hemoglobin 11.4 gm/dL (12.5-16.0); Mean Cell Volume 91.8 fl (78-100); Mean Corpuscular Hemoglobin 29.2 pg (27-31); Mean Corpuscular Hgb Conc 31.8 g/dl (32-36); Mean Platelet Volume 8.8 fl (6.0-9.5); Neutrophil # 6.3 K/mm3 (1.3-6.0); Neutrophil % 68.2 % (42-75.0); Platelet Count 259 K/mm3 (150-450); Red Cell Distribution Width 14.4 % (11.5-14.0); White Blood Count 9.2 K/mm3 (4.0-10.5)
[2017-04-10 05:38] LABS: Anion Gap 11.1 mmol/L (6.8-13.8); BUN/Creatinine Ratio 22.7 (9.0-21.6); Calcium * 8.9 mg/dL (7.9-10.9); Carbon Dioxide 28.7 mmol/L (24-32.6); Estimated Creat Clear 44.6; Potassium 4.8 mmol/L (3.4-4.6)
[2017-04-10] MEDS ORDERED: METOPROLOL TARTRATE 1 MG/ML AMPUL IV ONE (06:42)
[2017-04-10] MEDS ORDERED: ALBUTEROL SULFATE 2.5 MG/0.5 ML VIAL.NEB IH PRN (07:41)
[2017-04-10] MEDS: DIGOXIN 0.25 MG TABLET PO SCH ×2 (08:04→09:30)
[2017-04-10] MEDS: CIPROFLOXACIN IN 5 % DEXTROSE 400 MG/200 ML BAG IV SCH (08:04)
[2017-04-10] MEDS ORDERED: DILTIAZEM HCL 125 MG in DEXTROSE 5 % IN WATER 100 ML IV PRN ×2 (08:50)
[2017-04-10] MEDS ORDERED: AMIODARONE HCL 150 MG/100 ML PIGGYBACK IV ONE ×2 (14:10→16:30)
[2017-04-10] MEDS ORDERED: AMIODARONE HCL 900 MG in DEXTROSE 5 % IN WATER 500 ML IV SCH ×2 (14:38)
[2017-04-10] MEDS ORDERED: ENOXAPARIN SODIUM 40 MG/0.4 ML SYRG SC ONE (15:09)
[2017-04-10 15:44] VITALS: BP 94/69
--- NOTE | 2017-04-10 15:59 | DS ---
(1) Atrial flutter with rapid ventricular response Problem: Acute (2) Acute pyelonephritis Problem: Acute (3) Anxiety Problem: Chronic Description of Stay: Lorena arrived in the emergency room with chief complaint of flank pain and dysuria and fever from a urinary tract infection. She mentioned she was having some shortness of breath for the past 2 or 3 days and on auscultation of her chest PE or physician found that she had a heart rate of about 150. Twelve- lead EKG and monitor strip revealed this was atrial flutter. He treated her with IV Cardizem and both a loading dose and Cardizem drip to a maximum of 15 which did not slow her heart rate down any. After admission I gave her metoprolol at 1 mg/m. We had to stop after the second milligram was given because of a drop in blood pressure later the blood pressure resumed normal and we were able to give the other 3 mg. This did have some slowing effect on the heart but did not convert her. I then added oral digoxin 0.25 mg his initial dose of the repeat 0.125 mg dose this morning. I also gave her another 5 mg of metoprolol this morning first giving 3 mg at a milligram per minute and then given the other 2 mg later. Once again she has some slowing of her heart rate but it didn't last long and went back into the RVR pattern. I spoke to her about other treatment options and after thinking about it and talking about it with her family as she has requested to be transferred to [facility]. I have made transfer arrangements for her and she will be received by a hospitalist and then managed by a dietetic technician registered. She has remained hemodynamically stable except for some mild hypotension for which she was asymptomatic.. There is been no congestive heart failure. Her chest x-ray is clear and there is no fluid present. Records have been sent and reviewed by . She will be transferred per EMS. Procedures Performed: none Results and Findings: Microbiology 04/09/17 14:54 Urine,Clean Catch Urine Culture - Preliminary No Growth Laboratory Tests 04/09/17 04/09/17 04/09/17 14:03 14:03 14:25 WBC 9.6 RBC 4.19 L Hgb 12.5 Hct 38.1 MCV MCHC RDW 14.5 H Immature Gran # (Auto) 0.04 H Neutrophils % 81.5 H Lymphocytes % 12.9 L Monocytes % Neutrophils # 7.8 H Lymphocytes # 1.2 L Sodium Plasma Sodium Potassium Chloride Carbon Dioxide Anion Gap BUN 29 H D Creatinine 1.37 Est GFR (Non-Af Amer) 42 L BUN/Creatinine Ratio Random Glucose 120 H Urine Color Urine Appearance Urine pH Ur Specific Dodson Urine Protein Urine Blood Urine Nitrate Prot Sulfosalicylic Acd Ur Leukocyte Esterase Urine WBC Urine Bacteria Urine Amphetamine U Benzodiazepines Scrn Influenza Type A Ag Negative Influenza Type B Ag Negative 04/09/17 04/09/17 04/10/17 14:52 14:52 05:20 WBC 9.2 RBC 3.90 L Hgb 11.4 L Hct 35.8 L MCV 91.8 MCHC 31.8 L RDW 14.4 H Immature Gran # (Auto) Neutrophils % 68.2 Lymphocytes % 19.2 L Monocytes % 9.1 H Neutrophils # 6.3 H Lymphocytes # Sodium Plasma Sodium Potassium Chloride Carbon Dioxide Anion Gap BUN Creatinine Est GFR (Non-Af Amer) BUN/Creatinine Ratio Random Glucose Urine Color Dark yellow Urine Appearance Cloudy Urine pH 6.0 Ur Specific Dodson 1.025 Urine Protein 15 H Urine Blood Negative Urine Nitrate Negative Prot Sulfosalicylic Acd 1+ Ur Leukocyte Esterase 100 H Urine WBC 10-25 H Urine Bacteria 1+ H Urine Amphetamine Positive H U Benzodiazepines Scrn Positive H Influenza Type A Ag Influenza Type B Ag 04/10/17 05:20 WBC RBC Hgb Hct MCV MCHC RDW Immature Gran # (Auto) Neutrophils % Lymphocytes % Monocytes % Neutrophils # Lymphocytes # Sodium 138 Plasma Sodium 138 Potassium 4.8 H Chloride 103 Carbon Dioxide 28.7 Anion Gap 11.1 BUN 25 H Creatinine 1.10 Est GFR (Non-Af Amer) 54 L D BUN/Creatinine Ratio 22.7 H Random Glucose 111 H Urine Color Urine Appearance Urine pH Ur Specific Dodson Urine Protein Urine Blood Urine Nitrate Prot Sulfosalicylic Acd Ur Leukocyte Esterase Urine WBC Urine Bacteria Urine Amphetamine U Benzodiazepines Scrn Influenza Type A Ag Influenza Type B Ag Discharge Disposition: [facility] - I spoke with Dr. Ramirez hospitalist and Dr. Rojas-cardiology and both agreed to accept Mrs. Stearns in transfer. Disposition: [facility] Condition: Poor Discharge Activity: Activity as tolerated Discharge Diet: Consistent carbs Referrals: Mike Lopez MD [Primary Care Provider] - Complete Home Medications List: Complete Home Medication List: Zolpidem Tartrate [Ambien] 10 mg PO HS PRN 01/16/16 ALPRAZolam [Xanax] 0.5 mg PO BID PRN 03/06/16 Dextroamphetamine/Amphetamine [Adderall 20 mg Tablet] 20 mg PO DAILY@1200 Carisoprodol [Soma] 700 mg PO BID PRN 04/09/17 Dextroamphetamine/Amphetamine [Adderall 30 mg Tablet] 30 mg PO DAILY@0800 Ipratropium/Albuterol Sulfate [Combivent Respimat Inhal Greene] 2 puff IH TID PRN 04/09/17 traMADol HCL [Tramadol HCl] 50 mg PO Q4H PRN 04/09/17 Amiodarone HCl/D5w See Protocol IV NOW 04/10/17
[2017-04-10] MEDS ORDERED: ALPRAZolam 0.5 MG TABLET PO PRN (16:05)
[2017-04-10] MEDS ORDERED: traMADol HCL 50 MG TABLET PO PRN (16:05)
[2017-04-10] MEDS ORDERED: AMIODARONE IV SCH (16:15)
[2017-04-10] MEDS ORDERED: DEXTROSE IV SCH (16:15)
== END 2017-04-10 16:35 | disposition short-term general hospital (02) ==
LOC: ER 13:38 → SCU 15:22
PROVIDERS: ADMIT Family Medicine; ATTEND Family Medicine
DX: N10 Acute pyelonephritis (principal); I48.92 Unspecified atrial flutter; F41.9 Anxiety disorder, unspecified; Z68.25 Body mass index [BMI] 25.0-25.9, adult; G89.29 Other chronic pain; K21.9 Gastro-esophageal reflux disease without esophagitis; Z87.440 Personal history of urinary (tract) infections; F17.200 Nicotine dependence, unspecified, uncomplicated
CPT/HCPCS: 36415; 71045; 80048; 80053; 80307; 81001; 83605; 84443; 84484; 85025; 87086; 87400; 93005; 96365; 96367; 96372; 96375; 99285; G0378